=== PATIENT | male | born 1970 | race Caucasian/White ===

== ENCOUNTER → 2018-01-11 | Outpatient (CLI) | payer BC ==
--- NOTE | 2018-01-11 17:51 | US ---
EXAMINATION TYPE: US thyroid st tissue head/neck DATE OF EXAM: 01/11/2018 COMPARISON: NONE CLINICAL HISTORY: E04.9 GOITER. GLAND SIZE: Right Lobe: 5.4 x 1.7 x 1.5 cm Overall Parenchyma: homogenous Left Lobe: 4.9 x 1.5 x 2.1 cm Overall Parenchyma: homogeneous Isthmus Thickness: 0.2 cm NODULES RIGHT: # of nodules measured on right: 0 LEFT: # of nodules measured on left: 0 ISTHMUS: # of nodules measured in the isthmus: 0 Bilateral neck scanned, no evidence of lymphadenopathy. There are two tiny hypoechoic nodules left lobe under 3 mm. IMPRESSION: Thyromegaly with 2 tiny nodules too small to characterize measuring 3 mm or less.
== END | disposition home or self-care (01) ==
LOC: RADUSWWP 16:11
PROVIDERS: ATTEND Internal Medicine Endocrinology, Diabetes & Metabolism
DX: E04.2 Nontoxic multinodular goiter (principal)
CPT/HCPCS: 76536

== ENCOUNTER 2020-09-29 06:53 | Day surgery (SDC) | payer BC ==
[2020-09-27 14:13] VITALS: BMI 28.6
[~2020-09-29 06:53] MED LIST: LACTATED RINGERS 1,000 ML IV SCH; LIDOCAINE 1% (10MG/ML) FOR IV START INTRADERMA PRN
[2020-09-29 07:25] VITALS: RESP 18; TEMP 97.8
[2020-09-29] MEDS ORDERED: PROPOFOL 10 MG/ML 20 ML VIAL IV ONE (07:33)
[2020-09-29] MEDS ORDERED: MIDAZOLAM 2 MG/2 ML VIAL ONE (07:33)
[2020-09-29] MEDS ORDERED: fentaNYL (PF) 50 MCG/ML 2 ML AMP ONE (07:33)
[2020-09-29 07:44] LABS: Glucose,Whole Blood 134 mg/dL (75-99)
--- NOTE | 2020-09-29 07:55 | P.PCN ---
Date of Procedure: 09/29/20 Procedure(s) Performed: BRIEF HISTORY: Patient is a 50-year-old pleasant white male scheduled for an elective colonoscopy as a part of screening for colorectal neoplasia. PROCEDURE PERFORMED: Colonoscopy. PREOPERATIVE DIAGNOSIS: Screening for colon cancer. IV sedation per Anesthesia. PROCEDURE: After informed consent was obtained, the patient, was brought into the endoscopy unit. IV sedation was administered by Anesthesia under continuous monitoring. Digital rectal examination was normal. Initially the Olympus CF-160 flexible video colonoscope was then inserted in the rectum, gradually advanced into the cecum without any difficulty. Careful examination was performed as the scope was gradually being withdrawn. Ileocecal valve and the appendiceal orifice were visualized and appeared normal. Prep was excellent. Mucosa of the cecum, ascending colon, transverse colon, descending colon, sigmoid colon, and rectum appeared normal. Retroflexion was performed in the rectum and no lesions were seen. The patient tolerated the procedure well. IMPRESSION: Normal-appearing colon from rectum to cecum with no evidence of colorectal neoplasia . RECOMMENDATIONS: Findings of this examination were discussed with the patient as well as his family. He was advised to have a repeat screening colonoscopy in 10 years..
[2020-09-29 08:10] VITALS: BP 103/70; PULSE 79
== END 2020-09-29 08:33 | disposition home or self-care (01) ==
LOC: ORWHC2ENDO 06:53
PROVIDERS: ATTEND Internal Medicine Gastroenterology
DX: Z12.11 Encounter for screening for malignant neoplasm of colon (principal); E11.9 Type 2 diabetes mellitus without complications; G47.33 Obstructive sleep apnea (adult) (pediatric); Z88.8 Allergy status to other drugs, medicaments and biological substances; Z79.4 Long term (current) use of insulin; Z79.899 Other long term (current) drug therapy; Z99.89 Dependence on other enabling machines and devices
CPT/HCPCS: J2250; J3010; J2704; G0121

== ENCOUNTER 2021-08-02 08:52 | Day surgery (SDC) | payer BC ==
[2021-07-25 15:22] VITALS: BMI 29.2
--- NOTE | 2021-08-01 13:27 | HP ---
HISTORY AND PHYSICAL CHIEF COMPLAINT: Left shoulder pain. HISTORY OF PRESENT ILLNESS: The patient is a 50-year-old right-hand dominant male who presents with progressive left shoulder pain and stiffness for the past couple months. He cannot recall a specific injury. He is having pain with overhead use and at night. He has tried ibuprofen without much relief. He notes lateral pain that radiates anteriorly. He does have a history of right shoulder adhesive capsulitis. PAST MEDICAL HISTORY: Significant for insulin-dependent diabetes and hyperlipidemia. PAST SURGICAL HISTORY: Significant for manipulation of the right shoulder. CURRENT MEDICATIONS: Atorvastatin, metformin, insulin, and Siliqua. ALLERGIES: HE NOTES ALLERGIES TO SIMVASTATIN AND SENSITIVITY TO NOVOCAIN. FAMILY HISTORY: Significant for heart disease. SOCIAL HISTORY: Negative for current tobacco or alcohol use. REVIEW OF SYSTEMS: Sixteen-point review of systems otherwise reviewed and is noncontributory. PHYSICAL EXAMINATION: On examination, patient is approximately 5 foot 10, 204 pounds of mesomorphic habitus. HEENT exam is nonfocal. NECK is supple. EXTREMITIES: He is tender about the anterior subacromial space and glenohumeral joint of his left shoulder. Active range of motion left shoulder forward elevation 110 degrees, external rotation with arm at side 15 degrees, internal rotation to L3. Passively I am able to forward elevate 110 degrees. Motor strength 5/5 for abduction and external rotation. Impingement test, Neer tests are positive. His distal neurovascular exam appears intact left upper extremity. X-rays of the left shoulder obtained in the office show a type 2 acromion with maintained humeral head to acromial distance. IMPRESSION: 1. Left shoulder adhesive capsulitis. 2. Insulin-dependent diabetes. RECOMMENDATIONS: I talked to the patient at length regarding his condition along with treatment options. At this point, he remains quite symptomatic despite attempted initial conservative measures. After thorough discussion, he opts to proceed with manipulation under anesthesia with subacromial cortisone injection. Risks and benefits were discussed at length in layman's terms. We will likely perform that as an outpatient procedure utilizing IV sedation. MARISABEL / MADIN: [id number] /
[~2021-08-02 08:52] MED LIST changes: -LIDOCAINE 1% (10MG/ML) FOR IV START INTRADERMA PRN
[2021-08-02 09:34] LABS: Glucose,Whole Blood 146 mg/dL (75-99)
[2021-08-02] MEDS ORDERED: PROPOFOL 10 MG/ML 20 ML VIAL IV ONE (10:05)
[2021-08-02] MEDS ORDERED: MIDAZOLAM 2 MG/2 ML VIAL ONE (10:05)
[2021-08-02] MEDS ORDERED: HYDROmorphone (PF) 1 MG/ML ONE (10:05)
[2021-08-02] MEDS ORDERED: KETOROLAC 15 MG/ML 1 ML VIAL ONE (10:05)
--- NOTE | 2021-08-02 10:16 | P.OP ---
Date of Procedure: 08/02/21 Preoperative Diagnosis: Left shoulder adhesive capsulitis Postoperative Diagnosis: Same Procedure(s) Performed: Manipulation under anesthesia left shoulder with subacromial cortisone injection Anesthesia: MAC Surgeon: Robert Terrazas Estimated Blood Loss (ml): 0 Pathology: none sent Condition: stable Disposition: PACU Indications for Procedure: The patient's a 50-year-old male with insulin-dependent diabetes who presents with progressive left shoulder pain and stiffness for the past several months despite attempted conservative treatment. Clinically he is noted of evidence of adhesive capsulitis. A discussion the risks and benefits of manipulation under anesthesia with subacromial cortisone injection was made with patient. He opted to proceed. Operative risks to include tendon rupture, recurrence of stiffness and need for subsequent procedures was discussed. Informed consent was obtained. Operative Findings: As below Description of Procedure: The patient was brought to the recovery room, and after induction of IV sedation the left shoulder was gently manipulated first with the arm at side obtaining full external rotation. Moderate adhesions were encountered. I then obtained full forward elevation. Again there were moderate adhesions encountered. I felt that adequate release at this point. His posterior shoulder was prepped with ChloraPrep. 80 mg of methylprednisolone along with 3 mL of 1% lidocaine was injected into the subacromial space. He was then monitored until fully awake. No complications were incurred. There was no blood loss.
[2021-08-02] MEDS ORDERED: HYDROmorphone 0.5 MG/0.5 ML SYRINGE IVP ONE ×2 (10:25→10:31)
[2021-08-02] MEDS ORDERED: diphenhydrAMINE 50 MG/ML 1 ML VIAL ONE (10:37)
[2021-08-02] MEDS ORDERED: diphenhydrAMINE 50 MG/ML 1 ML VIAL IVP ONE (10:39)
[2021-08-02] MEDS ORDERED: LACTATED RINGERS 1,000 ML IV ONE (10:59)
[2021-08-02] MEDS ORDERED: IV FLUID CONTINUATION 1,000 ML IV ONE (10:59)
[2021-08-02] MEDS ORDERED: HYDROcodone/APAP 5-325MG 1 EACH TAB ONE (11:22)
[2021-08-02] MEDS ORDERED: HYDROcodone/APAP 5-325MG 1 EACH TAB PO ONE (11:26)
[2021-08-02 11:34] VITALS: BP 136/83; PULSE 83; RESP 16
== END 2021-08-02 12:18 | disposition home or self-care (01) ==
LOC: OR 08:52
PROVIDERS: ATTEND Orthopaedic Surgery
DX: M75.02 Adhesive capsulitis of left shoulder (principal); E11.9 Type 2 diabetes mellitus without complications; E78.5 Hyperlipidemia, unspecified; Z79.84 Long term (current) use of oral hypoglycemic drugs; Z79.4 Long term (current) use of insulin; Z79.899 Other long term (current) drug therapy; Z88.4 Allergy status to anesthetic agent; Z88.8 Allergy status to other drugs, medicaments and biological substances
CPT/HCPCS: 23700; J2250; J1200; J1170 ×2; J1885; J2704